=== PATIENT | female | born 1980 | race American Indian/Alaskan Native ===

== ENCOUNTER 2016-08-19 19:11 | Emergency (ER) | payer SELFPAY ==
[2016-08-19 19:20] VITALS: BP 129/72
[2016-08-19 19:57] LABS: CHLORIDE,CL 103 mmol/L (101-111); SODIUM,NA 136 mmol/L (135-145)
--- NOTE | 2016-08-19 20:19 | EDM.PDOC ---
ED HPI ENT - General Chief Complaint: ENT Problem Stated Complaint: NOSEBLEED Time Seen by Provider: 08/19/16 19:30 Source of Information: Reports: Patient History Limitations: Reports: No limitations - History of Present Illness INITIAL COMMENTS - FREE TEXT/NARRATIVE: c/o 3 nose bleeds today. All stopped with pressure, no bleeding history, no recent infections. No current bleeding - Related Data Allergies/ADRs: Allergies Allergy/AdvReac Type Severity Reaction Status Date / Time cephalexin Allergy Rash Verified 08/19/16 19:20 Home Meds: Home Meds . [No Known Home Meds] 08/19/16 [History] Past Medical History - Past Health History Medical/Surgical History: Denies Medical/Surgical History Social & Family History - Tobacco Use Smoking Status *Q: Current Every Day Smoker Years of Tobacco use: 1 Packs/Tins Daily: 0.1 Used Tobacco, but Quit: No - Recreational Drug Use Recreational Drug Use: No ED ROS ENT - Review of Systems Review Of Systems: See Below Constitutional: Reports: no symptoms HEENT: Reports: Nosebleed Respiratory: Reports: no symptoms Cardiovascular: Reports: No symptoms Endocrine: Reports: no symptoms Musculoskeletal: Reports: no symptoms Skin: Reports: no symptoms Neurological: Reports: no symptoms ED EXAM, ENT - Physical Exam Exam: See Below Exam Limited By: No limitations General Appearance: alert, no apparent distress Eye Exam: bilateral eye: EOMI Ears: normal external exam, normal TMs Nose: injected turbinates (left, no active bleeding, mild swelling left). No: nasal discharge, nasal swelling, nasal tenderness, nasal ecchymosis, active bleeding, dried blood Mouth/Throat: Normal inspection, Normal gums, Normal oropharynx Head: atraumatic, normocephalic Respiratory/Chest: no respiratory distress, lungs clear Cardiovascular: normal peripheral pulses, regular rate, rhythm Psychiatric: normal affect Skin: Warm, Dry, Intact, Normal color Course - Vital Signs Last Recorded V/S: Last Vital Signs Temp 97.9 F 08/19/16 19:15 Pulse 74 08/19/16 19:15 Resp 18 08/19/16 19:15 BP 129/72 08/19/16 19:15 Pulse Ox 100 08/19/16 19:15 - Orders/Labs/Meds Labs: Laboratory Tests 08/19/16 08/19/16 Range/Units 19:32 19:32 WBC 10.5 H (5.0-10.0) 10^3/uL RBC 4.54 (4.2-5.4) 10^6/uL Hgb 11.6 L (12.0-16.0) g/dL Hct 35.9 L (37.0-47.0) % MCV 79.1 L (80-100) fL MCH 25.6 L (27.0-34.0) pg MCHC 32.3 L (33.0-35.0) g/dL Plt Count 223 (150-450) 10^3/uL Neut % (Auto) 67.2 (42.2-75.2) % Lymph % (Auto) 23.0 (20.5-50.1) % [place] % (Auto) 7.1 (2-8) % Eos % (Auto) 2.4 (1.0-3.0) % Baso % (Auto) 0.3 (0.0-1.0) % Sodium 136 (135-145) mmol/L Potassium 3.9 (3.6-5.0) mmol/L Chloride 103 (101-111) mmol/L Carbon Dioxide 25.0 (21.0-31.0) mmol/L Anion Gap 11.9 BUN 12 (7-18) mg/dL Creatinine 0.6 (0.6-1.3) mg/dL Est Cr Clr Drug Dosing 124.84 mL/min Estimated GFR (MDRD) > 60 BUN/Creatinine Ratio 20.00 Glucose 118 H (74-105) mg/dL Calcium 9.0 (8.4-10.2) mg/dl Total Bilirubin 0.2 (0.2-1.0) mg/dL AST 21 (10-42) IU/L ALT 19 (10-60) IU/L Alkaline Phosphatase 61 (42-121) IU/L Total Protein 7.5 (6.7-8.2) g/dl Albumin 3.6 (3.2-5.5) g/dl Globulin 3.9 Albumin/Globulin Ratio 0.92 Departure - Departure Time of Disposition: 20:15 Disposition: Home, Self-Care 01 Condition: good Clinical Impression: Epistaxis Instructions: Nosebleed, [id number] Forms: ED Department Discharge Additional Instructions: Humidification saline nasal spray twice daily if nose bleed, gentle blow then apply pressure to nasal bridge x 5 minutes recheck if bleeding does not stop
== END 2016-08-19 20:20 | disposition home or self-care (01) ==
LOC: DL.ED 19:11
DX: R04.0 Epistaxis (principal); F17.210 Nicotine dependence, cigarettes, uncomplicated
CPT/HCPCS: 36415; 80053; 85025; 99282; 99283

== ENCOUNTER 2018-02-24 19:22 | Emergency (ER) | payer MEDICAID ==
[2018-02-24 19:40] VITALS: BP 128/78
[2018-02-24 20:22] LABS: ANION GAP 13.5; CHLORIDE,CL 104 mmol/L (101-111); SODIUM,NA 136 mmol/L (135-145)
--- NOTE | 2018-02-24 20:52 | EDM.PDOC ---
ED HPI GENERAL MEDICAL PROBLEM - General Chief Complaint: Fever Stated Complaint: FEVER,NOT FEELING GOOD [id number] Time Seen by Provider: 02/24/18 19:40 Source of Information: Reports: Patient History Limitations: Reports: No Limitations - History of Present Illness INITIAL COMMENTS - FREE TEXT/NARRATIVE: ED with c/o fever and general body aches this am on awakening. No sorethroat, headache, nausea, abdominal pain vomiting or diarrhea. Generalized Pain Score (Numeric/FACES): 3 - Related Data Allergies Allergy/AdvReac Type Severity Reaction Status Date / Time cephalexin Allergy Rash Verified 02/24/18 19:37 Home Meds: Home Meds . 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 Constitutional: Reports: Chills HEENT: Reports: No Symptoms Respiratory: Reports: No Symptoms Cardiovascular: Reports: No Symptoms GI/Abdominal: Reports: No Symptoms : Reports: No Symptoms Musculoskeletal: Reports: Joint Pain, Muscle Pain Skin: Reports: No Symptoms Neurological: Reports: No Symptoms Psychiatric: Reports: No Symptoms ED EXAM, GENERAL - Physical Exam Exam: See Below Exam Limited By: No Limitations General Appearance: Alert, Mild Distress Eye Exam: Bilateral Eye: EOMI, PERRL Ears: Normal External Exam, Normal TMs Nose: Normal Inspection Throat/Mouth: Normal Inspection Head: Atraumatic, Normocephalic Neck: Normal Inspection, Full Range of Motion Respiratory/Chest: No Respiratory Distress, Lungs Clear, Normal Breath Sounds Cardiovascular: Normal Peripheral Pulses, Regular Rate, Rhythm GI/Abdominal: Normal Bowel Sounds, Soft, Non-Tender Back Exam: Normal Inspection, Full Range of Motion. No: CVA Tenderness (L), CVA Tenderness (R) Extremities: Normal Inspection, Normal Range of Motion. No: Joint Swelling, Limited Range of Motion, Increased Warmth, Redness Neurological: Alert, Oriented, Normal Cognition Psychiatric: Normal Affect, Normal Mood Skin Exam: Warm, Dry, Intact, Normal Color, No Rash. No: Increased Warmth, Wound/Incision Course - Vital Signs Last Recorded V/S: Last Vital Signs Temp 99.0 F 02/24/18 19:38 Pulse 93 02/24/18 19:38 Resp 16 02/24/18 19:38 BP 128/78 02/24/18 19:38 Pulse Ox 100 02/24/18 19:38 - Orders/Labs/Meds Labs: Laboratory Tests 02/24/18 02/24/18 02/24/18 Range/Units 19:56 19:56 19:56 WBC 10.1 H (5.0-10.0) 10^3/uL RBC 5.15 (4.2-5.4) 10^6/uL Hgb 13.8 D (12.0-16.0) g/dL Hct 42.0 (37.0-47.0) % MCV 81.6 (80-100) fL MCH 26.8 L (27.0-34.0) pg MCHC 32.9 L (33.0-35.0) g/dL Plt Count 239 (150-450) 10^3/uL Neut % (Auto) 87.0 H (42.2-75.2) % Lymph % (Auto) 8.0 L (20.5-50.1) % [place] % (Auto) 3.3 (2-8) % Eos % (Auto) 1.6 (1.0-3.0) % Baso % (Auto) 0.1 (0.0-1.0) % Sodium 136 (135-145) mmol/L Potassium 3.5 L (3.6-5.0) mmol/L Chloride 104 (101-111) mmol/L Carbon Dioxide 22.0 (21.0-31.0) mmol/L Anion Gap 13.5 BUN 10 (7-18) mg/dL Creatinine 0.7 (0.6-1.3) mg/dL Est Cr Clr Drug Dosing 102.01 mL/min Estimated GFR (MDRD) > 60 BUN/Creatinine Ratio 14.28 Glucose 106 H (74-105) mg/dL Calcium 8.4 (8.4-10.2) mg/dl Total Bilirubin 0.5 (0.2-1.0) mg/dL AST 34 (10-42) IU/L ALT 32 (10-60) IU/L Alkaline Phosphatase 88 (42-121) IU/L C-Reactive Protein 4.2 H (0.0-1.3) mg/dL Total Protein 7.7 (6.7-8.2) g/dl Albumin 3.7 (3.2-5.5) g/dl Globulin 4.0 Albumin/Globulin Ratio 0.93 Urine Color (YELLOW) Urine Appearance (CLEAR) Urine pH (5.0-9.0) Ur Specific [place] (1.005-1.030) Urine Protein (NEGATIVE) Urine Glucose (UA) (NEGATIVE) Urine Ketones (NEGATIVE) Urine Occult Blood (NEGATIVE) Urine Nitrite (NEGATIVE) Urine Bilirubin (NEGATIVE) Urine Urobilinogen (0.2-1.0) mg/dL Ur Leukocyte Esterase (NEGATIVE) Urine RBC /HPF Urine WBC (0-5/HPF) /HPF Ur Epithelial Cells /HPF Urine Bacteria (0-FEW/HPF) /HPF Urine Mucus /LPF 02/24/18 Range/Units 20:40 WBC (5.0-10.0) 10^3/uL RBC (4.2-5.4) 10^6/uL Hgb (12.0-16.0) g/dL Hct (37.0-47.0) % MCV (80-100) fL MCH (27.0-34.0) pg MCHC (33.0-35.0) g/dL Plt Count (150-450) 10^3/uL Neut % (Auto) (42.2-75.2) % Lymph % (Auto) (20.5-50.1) % [place] % (Auto) (2-8) % Eos % (Auto) (1.0-3.0) % Baso % (Auto) (0.0-1.0) % Sodium (135-145) mmol/L Potassium (3.6-5.0) mmol/L Chloride (101-111) mmol/L Carbon Dioxide (21.0-31.0) mmol/L Anion Gap BUN (7-18) mg/dL Creatinine (0.6-1.3) mg/dL Est Cr Clr Drug Dosing mL/min Estimated GFR (MDRD) BUN/Creatinine Ratio Glucose (74-105) mg/dL Calcium (8.4-10.2) mg/dl Total Bilirubin (0.2-1.0) mg/dL AST (10-42) IU/L ALT (10-60) IU/L Alkaline Phosphatase (42-121) IU/L C-Reactive Protein (0.0-1.3) mg/dL Total Protein (6.7-8.2) g/dl Albumin (3.2-5.5) g/dl Globulin Albumin/Globulin Ratio Urine Color Yellow (YELLOW) Urine Appearance Slightly cloudy (CLEAR) Urine pH 7.5 (5.0-9.0) Ur Specific [place] 1.020 (1.005-1.030) Urine Protein Negative (NEGATIVE) Urine Glucose (UA) Negative (NEGATIVE) Urine Ketones Negative (NEGATIVE) Urine Occult Blood Negative (NEGATIVE) Urine Nitrite Negative (NEGATIVE) Urine Bilirubin Negative (NEGATIVE) Urine Urobilinogen 0.2 (0.2-1.0) mg/dL Ur Leukocyte Esterase Negative (NEGATIVE) Urine RBC 0-5 /HPF Urine WBC 0-5 (0-5/HPF) /HPF Ur Epithelial Cells Few /HPF Urine Bacteria Rare (0-FEW/HPF) /HPF Urine Mucus Moderate H /LPF Departure - Departure Time of Disposition: 21:51 Disposition: Home, Self-Care 01 Condition: Good Clinical Impression: Body aches - Discharge Information *PRESCRIPTION DRUG MONITORING PROGRAM REVIEWED*: Not Applicable Instructions: Musculoskeletal Pain Forms: ED Department Discharge Additional Instructions: alternate tylenol and ibuprofen increase fluids follow up increased fever or worsening of symptoms
== END 2018-02-24 21:55 | disposition home or self-care (01) ==
LOC: DL.ED 19:22
DX: R52 Pain, unspecified (principal); F17.210 Nicotine dependence, cigarettes, uncomplicated; Z88.1 Allergy status to other antibiotic agents
CPT/HCPCS: 36415; 80053; 81001; 85025; 86140; 87804; 99283

== ENCOUNTER 2018-08-09 21:45 | Emergency (ER) | payer MEDICAID ==
[2018-08-09] MEDS ORDERED: Ondansetron 4 MG Tab.DIS PO ONE (21:46)
[2018-08-09 21:54] VITALS: BP 122/90
[2018-08-09] MEDS ORDERED: Sodium Chloride 0.9% 1,000 ML IV ONE (22:06)
[2018-08-09] MEDS ORDERED: Ondansetron 4 MG/2 ML SDV IV ONE (22:06)
--- NOTE | 2018-08-09 22:30 | EDM.PDOC ---
ED HPI GENERAL MEDICAL PROBLEM - General Chief Complaint: Fever Stated Complaint: FLU Time Seen by Provider: 08/09/18 22:00 Source of Information: Reports: Patient History Limitations: Reports: No Limitations - History of Present Illness INITIAL COMMENTS - FREE TEXT/NARRATIVE: C/o cough vomiting diarrhea and chills starting this afternoon. Reports daughter and granddaughter diagnosed recently with influenza. 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 ED EXAM, GENERAL - Physical Exam Exam: See Below Exam Limited By: No Limitations General Appearance: Alert, Mild Distress Eye Exam: Bilateral Eye: EOMI, PERRL Ears: Normal External Exam, Normal Canal, Hearing Grossly Normal Nose: Normal Inspection. No: Nasal Drainage Throat/Mouth: Normal Inspection, Normal Voice, No Airway Compromise Head: Atraumatic, Normocephalic Neck: Normal Inspection, Full Range of Motion Respiratory/Chest: No Respiratory Distress, Lungs Clear, Other (loose bronchial cough rare) Cardiovascular: Normal Peripheral Pulses, Regular Rate, Rhythm GI/Abdominal: Normal Bowel Sounds, Soft, Non-Tender Back Exam: Full Range of Motion Neurological: Alert, Oriented, Normal Cognition Psychiatric: Flat Affect Skin Exam: Warm, Dry, Intact, Normal Color Course - Vital Signs Last Recorded V/S: Last Vital Signs Temp 97.7 F 08/09/18 21:50 Pulse 106 H 08/09/18 21:50 Resp 19 08/09/18 21:50 BP 122/90 08/09/18 21:50 Pulse Ox 99 08/09/18 21:50 - Orders/Labs/Meds Orders: Active Orders 24 hr Category Date Time Status CULTURE STREP A CONFIRMATION [RM] Stat Lab 08/09/18 22:05 Results STREP SCRN A RAPID W CULT CONF [] Stat Lab 08/09/18 22:05 Results Labs: Laboratory Tests 08/09/18 08/09/18 Range/Units 22:09 22:09 WBC 19.2 H (5.0-10.0) 10^3/uL RBC 5.18 (4.2-5.4) 10^6/uL Hgb 13.9 (12.0-16.0) g/dL Hct 41.7 (37.0-47.0) % MCV 80.5 (80-100) fL MCH 26.8 L (27.0-34.0) pg MCHC 33.3 (33.0-35.0) g/dL Plt Count 249 (150-450) 10^3/uL Neut % (Auto) 92.3 H (42.2-75.2) % Lymph % (Auto) 3.6 L (20.5-50.1) % [place] % (Auto) 2.8 (2-8) % Eos % (Auto) 1.2 (1.0-3.0) % Baso % (Auto) 0.1 (0.0-1.0) % Sodium 137 (135-145) mmol/L Potassium 3.7 (3.6-5.0) mmol/L Chloride 103 (101-111) mmol/L Carbon Dioxide 20.0 L (21.0-31.0) mmol/L Anion Gap 17.7 BUN 15 (7-18) mg/dL Creatinine 0.7 (0.6-1.3) mg/dL Est Cr Clr Drug Dosing 101.01 mL/min Estimated GFR (MDRD) > 60 BUN/Creatinine Ratio 21.42 Glucose 128 H (74-105) mg/dL Calcium 8.5 (8.4-10.2) mg/dl Total Bilirubin 0.7 (0.2-1.0) mg/dL AST 24 (10-42) IU/L ALT 24 (10-60) IU/L Alkaline Phosphatase 75 (42-121) IU/L Total Protein 8.1 (6.7-8.2) g/dl Albumin 3.9 (3.2-5.5) g/dl Globulin 4.2 Albumin/Globulin Ratio 0.93 Meds: Medications Discontinued Medications Generic Name Dose Route Start Last Admin Trade Name Esdrasq PRN Reason Stop Dose Admin Sodium Chloride 1,000 mls @ 999 mls/hr 08/09/18 22:06 08/09/18 22:14 Normal Saline IV 08/09/18 23:06 999 mls/hr .BOLUS ONE Administration Ondansetron HCl 4 mg 08/09/18 22:06 08/09/18 22:14 Zofran IV 08/09/18 22:07 4 mg ONETIME ONE Administration Ondansetron HCl Confirm 08/09/18 23:47 08/10/18 00:30 Zofran Odt Administered 08/09/18 23:48 Not Given Dose 8 mg .[facility] .[facility] [place] [facility] Interpretation Free Text/Narrative:: Name: GAIL CHAPA Age: 38Years F Date: 08/09/2018 SSN: -- : [id number] Study: XR CHEST 1 VIEW Requesting Physician: AYLEEN ZIEGLER Images: 1 Addl Studies: Provided Clinical History: Contrast: Contrast Medium: Contrast Amount: Contrast Method: CONFIDENTIALITY STATEMENT This report is intended only for use by the referring physician, and only in accordance with law. If you received this in error, call [phone]. Page 1 of 1 EXAM: XR Chest, 1 View EXAM DATE/TIME: 08/09/2018 10:42 PM CLINICAL HISTORY: 38 years old, female; Signs and symptoms; Cough and fever TECHNIQUE: XR of the chest, 1 view. COMPARISON: No relevant prior studies available. FINDINGS: Lungs: LEFT retrocardiac opacification, possible combination LEFT lower lobe segmental atelectasis versus infiltrate. Pleural space: No pleural effusion. No pneumothorax. Heart/Mediastinum: Cardiomegaly. Bones/joints: Unremarkable. IMPRESSION: LEFT lower lobe segmental atelectasis versus infiltrate. Thank you for allowing us to participate in the care of your patient. Dictated and Authenticated by: Carli Cedillo MD 08/09/2018 11:17 PM Central Time ([place] & [place] Departure - Departure Time of Disposition: 23:43 Disposition: Home, Self-Care 01 Condition: Good Clinical Impression: Gastroenteritis URI (upper respiratory infection) Qualifiers: URI type: unspecified viral URI Qualified Code(s): J06.9 - Acute upper respiratory infection, unspecified - Discharge Information *PRESCRIPTION DRUG MONITORING PROGRAM REVIEWED*: No *COPY OF PRESCRIPTION DRUG MONITORING REPORT IN PATIENT CYNDI: No Referrals: PCP,None [Primary Care Provider] - Forms: ED Department Discharge Additional Instructions: rest small sips liquid more frequent, slowly advane with toleration zofran 4mg ODT one every 6 hours as needed for nausea and vomiting - My Orders Last 24 Hours: My Active Orders 08/09/18 22:05 CULTURE STREP A CONFIRMATION [RM] Stat STREP SCRN A RAPID W CULT CONF [RM] Stat - Assessment/Plan Last 24 Hours: My Active Orders 08/09/18 22:05 CULTURE STREP A CONFIRMATION [RM] Stat STREP SCRN A RAPID W CULT CONF [] Stat
[2018-08-09 22:39] LABS: ANION GAP 17.7; CHLORIDE,CL 103 mmol/L (101-111); SODIUM,NA 137 mmol/L (135-145)
[2018-08-09] MEDS ORDERED: Ondansetron 4 MG Tab.DIS ONE (23:47)
== END 2018-08-09 23:57 | disposition home or self-care (01) ==
LOC: DL.ED 21:45
DX: K52.9 Noninfective gastroenteritis and colitis, unspecified (principal); J06.9 Acute upper respiratory infection, unspecified; Z90.49 Acquired absence of other specified parts of digestive tract; Z88.1 Allergy status to other antibiotic agents
CPT/HCPCS: 36415; 71045; 80053; 85025; 87081; 87430; 87804; 96361; 96374; 99284; J2405; J7030; A9270-GY

== ENCOUNTER 2019-05-27 12:37 | Emergency (ER) | payer MEDICAID ==
[2019-05-27] MEDS ORDERED: Albuterol/Ipratropium 3.0-0.5 MG/3 ML Neb Soln NEB ONE (12:44)
--- NOTE | 2019-05-27 12:53 | EDM.PDOC ---
ED HPI GENERAL MEDICAL PROBLEM - General Chief Complaint: Respiratory Problem Stated Complaint: SOB Time Seen by Provider: 05/27/19 12:53 Source of Information: Reports: Patient, Family, RN, RN Notes Reviewed History Limitations: Reports: No Limitations - History of Present Illness INITIAL COMMENTS - FREE TEXT/NARRATIVE: patient presents to ER with complaint of shortness of breath, cough, cold. Patient states she's had a cold for the past 7-10 days. Patient states she's had some shortness of breath for the past 2 days, increasing today. Patient admits to fever and chills, and nausea. Patient states the only pain she has is in the left popliteal area. Denies any history of blood clots. Onset: Gradual Onset Date: 05/25/19 - Related Data Allergies Allergy/AdvReac Type Severity Reaction Status Date / Time cephalexin Allergy Rash Verified 08/09/18 21:54 Home Meds: Home Meds . 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 ED EXAM, GENERAL - Physical Exam Exam: See Below Exam Limited By: No Limitations General Appearance: Alert, WD/WN, No Apparent Distress Eye Exam: Bilateral Eye: EOMI, Normal Inspection Ears: Normal External Exam, Hearing Grossly Normal Nose: Normal Inspection Throat/Mouth: Normal Inspection, Normal Voice, No Airway Compromise Head: Atraumatic, Normocephalic Neck: Normal Inspection, Supple, Non-Tender, Full Range of Motion Respiratory/Chest: No Respiratory Distress, No Accessory Muscle Use, Chest Non- Tender, Rhonchi, Wheezing Cardiovascular: Normal Peripheral Pulses, Regular Rate, Rhythm, No Edema, No Gallop, No JVD, No Murmur, No Rub Peripheral Pulses: 2+: Radial (L), Radial (R) GI/Abdominal: Normal Bowel Sounds, Soft, Non-Tender (Female) Exam: Deferred Rectal (Female) Exam: Deferred Back Exam: Normal Inspection, Full Range of Motion, NT Extremities: Normal Inspection, Normal Range of Motion, Non-Tender, Normal Capillary Refill, No Pedal Edema Neurological: Alert, Oriented, CN II-XII Intact, Normal Cognition, Normal Gait, Normal Reflexes, No Motor/Sensory Deficits Psychiatric: Normal Affect, Normal Mood Skin Exam: Warm, Dry, Intact, Normal Color, No Rash Lymphatic: No Adenopathy Course - Vital Signs Last Recorded V/S: Last Vital Signs Temp 97.9 F 05/27/19 12:37 Pulse 110 H 05/27/19 12:58 Resp 18 05/27/19 12:37 BP 124/68 05/27/19 12:37 Pulse Ox 98 05/27/19 12:37 - Orders/Labs/Meds Orders: Active Orders 24 hr Category Date Time Status EKG Documentation Completion [RC] STAT Care 05/27/19 12:54 Inactive Peripheral IV Care [RC] . DIRECTED Care 05/27/19 12:54 Active RT Aerosol Therapy [RC] ASDIRECTED Care 05/27/19 12:44 Active CULTURE BLOOD [BC] Stat Lab 05/27/19 12:55 Received CULTURE BLOOD [BC] Stat Lab 05/27/19 13:49 Received Blood Culture x2 Reflex Set [OM.PC] Stat Oth 05/27/19 12:54 Ordered Peripheral IV Insertion Adult [OM.PC] Stat Oth 05/27/19 12:54 Ordered Labs: Laboratory Tests 05/27/19 05/27/19 05/27/19 Range/Units 12:55 12:55 12:55 WBC 12.5 H (5.0-10.0) 10^3/uL RBC 5.31 (4.2-5.4) 10^6/uL Hgb 14.2 (12.0-16.0) g/dL Hct 42.2 (37.0-47.0) % MCV 79.5 L (80-100) fL MCH 26.7 L (27.0-34.0) pg MCHC 33.6 (33.0-35.0) g/dL Plt Count 308 (150-450) 10^3/uL Neut % (Auto) 69.5 (42.2-75.2) % Lymph % (Auto) 21.3 (20.5-50.1) % [place] % (Auto) 5.0 (2-8) % Eos % (Auto) 4.0 H (1.0-3.0) % Baso % (Auto) 0.2 (0.0-1.0) % PT 9.2 (9.0-12.0) SEC INR 0.9 (0.9-1.2) D-Dimer, Quantitative 101 (0-400) ng/mL Sodium 137 (135-145) mmol/L Potassium 3.6 (3.6-5.0) mmol/L Chloride 106 (101-111) mmol/L Carbon Dioxide 22.0 (21.0-31.0) mmol/L Anion Gap 12.6 BUN 11 (7-18) mg/dL Creatinine 0.7 (0.6-1.3) mg/dL Est Cr Clr Drug Dosing TNP Estimated GFR (MDRD) > 60 BUN/Creatinine Ratio 15.71 Glucose 107 H (74-105) mg/dL Lactic Acid (0.5-2.2) mmol/L Calcium 8.7 (8.4-10.2) mg/dl Total Bilirubin 0.6 (0.2-1.0) mg/dL AST 65 H (10-42) IU/L ALT 95 H (10-60) IU/L Alkaline Phosphatase 86 (42-121) IU/L Troponin I < 0.02 (0.00-0.02) ng/ml Total Protein 8.4 H (6.7-8.2) g/dl Albumin 3.9 (3.2-5.5) g/dl Globulin 4.5 Albumin/Globulin Ratio 0.87 05/27/ Range/Units 12:55 WBC (5.0-10.0) 10^3/uL RBC (4.2-5.4) 10^6/uL Hgb (12.0-16.0) g/dL Hct (37.0-47.0) % MCV (80-100) fL MCH (27.0-34.0) pg MCHC (33.0-35.0) g/dL Plt Count (150-450) 10^3/uL Neut % (Auto) (42.2-75.2) % Lymph % (Auto) (20.5-50.1) % [place] % (Auto) (2-8) % Eos % (Auto) (1.0-3.0) % Baso % (Auto) (0.0-1.0) % PT (9.0-12.0) SEC INR (0.9-1.2) D-Dimer, Quantitative (0-400) ng/mL Sodium (135-145) mmol/L Potassium (3.6-5.0) mmol/L Chloride (101-111) mmol/L Carbon Dioxide (21.0-31.0) mmol/L Anion Gap BUN (7-18) mg/dL Creatinine (0.6-1.3) mg/dL Est Cr Clr Drug Dosing Estimated GFR (MDRD) BUN/Creatinine Ratio Glucose (74-105) mg/dL Lactic Acid 1.3 (0.5-2.2) mmol/L Calcium (8.4-10.2) mg/dl Total Bilirubin (0.2-1.0) mg/dL AST (10-42) IU/L ALT (10-60) IU/L Alkaline Phosphatase (42-121) IU/L Troponin I (0.00-0.02) ng/ml Total Protein (6.7-8.2) g/dl Albumin (3.2-5.5) g/dl Globulin Albumin/Globulin Ratio Meds: Medications Discontinued Medications Generic Name Dose Route Start Last Admin Trade Name Freq PRN Reason Stop Dose Admin Albuterol/Ipratropium 3 ml 05/27/19 12:44 05/27/19 13:02 Duoneb 3.0-0.5 Mg/3 Ml NEB 05/27/19 12:45 3 ml ONETIME ONE Administration Sodium Chloride 10 ml 05/27/19 12:54 Saline Flush FLUSH ASDIRECTED PRN Keep Vein Open - Radiology Interpretation Free Text/Narrative:: Chest xray: no acute new cardiopulmonary abnormality since August 2018 See rad report Departure - Departure Time of Disposition: 14:54 Disposition: Home, Self-Care 01 Condition: Fair Clinical Impression: Bronchitis - Discharge Information *PRESCRIPTION DRUG MONITORING PROGRAM REVIEWED*: No *COPY OF PRESCRIPTION DRUG MONITORING REPORT IN PATIENT CYNDI: No Instructions: Acute Bronchitis, Adult, [id number], Upper Respiratory Infection, Adult, [id number], How to Use a Dry Powder Inhaler, [id number] Referrals: PCP,None [Primary Care Provider] - Forms: ED Department Discharge Additional Instructions: May use Tylenol and/or ibuprofen for fever/pain Drink plenty of water Rx: Albuterol inhaler, azithromycin Rest Follow-up with your primary care provider Return to the ER with any worsening of symptoms Sepsis Event Note - Focused Exam Vital Signs: Vital Signs Temp Pulse Resp BP Pulse Ox 05/27/19 12:58 110 H 05/27/19 12:37 97.9 F 86 18 124/68 98 Date Exam was Performed: 05/27/19 Time Exam was Performed: 19:12 - My Orders Last 24 Hours: My Active Orders 05/27/19 12:44 RT Aerosol Therapy [RC] ASDIRECTED 05/27/19 12:54 EKG Documentation Completion [RC] STAT Peripheral IV Care [RC] . DIRECTED Blood Culture x2 Reflex Set [OM.PC] Stat Peripheral IV Insertion Adult [OM.PC] Stat 05/27/19 12:55 CULTURE BLOOD [BC] Stat 05/27/19 13:49 CULTURE BLOOD [BC] Stat - Assessment/Plan Last 24 Hours: My Active Orders 05/27/19 12:44 RT Aerosol Therapy [RC] ASDIRECTED 05/27/19 12:54 EKG Documentation Completion [RC] STAT Peripheral IV Care [RC] . DIRECTED Blood Culture x2 Reflex Set [OM.PC] Stat Peripheral IV Insertion Adult [OM.PC] Stat 05/27/19 12:55 CULTURE BLOOD [BC] Stat 05/27/19 13:49 CULTURE BLOOD [BC] Stat
[2019-05-27] MEDS ORDERED: Sodium Chloride 0.9% 10 ML Syringe FLUSH PRN (12:54)
[2019-05-27 13:00] VITALS: PULSE 110
[2019-05-27 13:26] LABS: ANION GAP 12.6; CHLORIDE,CL 106 mmol/L (101-111); SODIUM,NA 137 mmol/L (135-145)
--- NOTE | 2019-05-27 14:04 | CR ---
EXAMINATION: Chest 1V Frontal SEX: Female AGE: 39 years CLINICAL HISTORY: 39-year-old female chest pain. INTERPRETATION: 1. No acute new cardiopulmonary abnormality since comparison film 09 August 2018. 2. Normal cardiac silhouette and bony thorax (AP projection). No vascular congestion, alveolar edema or pleural effusion. 3. No new lung mass or hilar lymphadenopathy. 4. No infiltrate, atelectasis or collapse. 5. No pneumothorax, pneumomediastinum or free subdiaphragmatic air. CONCLUSION: No acute new cardiopulmonary abnormality since August 2018.
[2019-05-27 15:24] VITALS: BP 124/68
== END 2019-05-27 15:24 | disposition home or self-care (01) ==
LOC: DL.ED 12:37
DX: J40 Bronchitis, not specified as acute or chronic (principal); Z88.1 Allergy status to other antibiotic agents
CPT/HCPCS: 36415; 71045; 80053; 83605; 84484; 85025; 85379; 85610; 87040; 87077; 87186; 87804; 94640; 99285-25; J7620-GY

== ENCOUNTER 2019-09-21 20:37 | Emergency (ER) | payer MEDICAID, OTHER ==
[2019-09-21 20:46] VITALS: BP 120/54; PULSE 103
--- NOTE | 2019-09-21 20:48 | EDM.PDOC ---
ED HPI GENERAL MEDICAL PROBLEM - General Chief Complaint: Respiratory Problem Stated Complaint: BAD COUGH/HARD TIME BREATHING Time Seen by Provider: 09/21/19 20:48 Source of Information: Reports: Patient, RN, RN Notes Reviewed History Limitations: Reports: No Limitations - History of Present Illness INITIAL COMMENTS - FREE TEXT/NARRATIVE: patient presents to ER with complaint of feeling sick for 3-4 days. Patient states it began with cough has developed some shortness of breath. Patient admits to some abdominal pain, nausea, fever and chills. Patient denies sore throat runny nose or vomiting. Patient denies anyhistory of a health problems, denies taking medications on a daily basis. Patient denies any chance of . 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 Patient states she traveled to [place] last week Friday for shopping. Patient states she went only to the places she needed to go, warm asking gloves and used hand printed circuit boards laminator. Patient states she does not work in healthcare, and has not knowingly been exposed to anyone with Covid-19 symptoms. Onset: Gradual - Related Data Allergies Allergy/AdvReac Type Severity Reaction Status Date / Time cephalexin Allergy Rash Verified 09/21/19 20:41 Home Meds: Home Meds . 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 ED EXAM, GENERAL - Physical Exam Exam: See Below Exam Limited By: No Limitations General Appearance: Alert, WD/WN, No Apparent Distress Eye Exam: Bilateral Eye: EOMI, Normal Inspection Ears: Normal External Exam, Hearing Grossly Normal Nose: Normal Inspection Throat/Mouth: Normal Inspection, Normal Voice, No Airway Compromise Head: Atraumatic, Normocephalic Neck: Normal Inspection, Supple, Non-Tender, Full Range of Motion Respiratory/Chest: No Respiratory Distress, Lungs Clear, Normal Breath Sounds, No Accessory Muscle Use, Chest Non-Tender Cardiovascular: Normal Peripheral Pulses, Regular Rate, Rhythm, No Edema, No Gallop, No JVD, No Murmur, No Rub Peripheral Pulses: 2+: Radial (L), Radial (R) GI/Abdominal: Normal Bowel Sounds, Soft, Non-Tender (Female) Exam: Deferred Rectal (Female) Exam: Deferred Back Exam: Normal Inspection, Full Range of Motion, NT Extremities: Normal Inspection, Normal Range of Motion, Non-Tender, Normal Capillary Refill, No Pedal Edema Neurological: Alert, Oriented, CN II-XII Intact, Normal Cognition, Normal Gait, Normal Reflexes, No Motor/Sensory Deficits Psychiatric: Normal Affect, Normal Mood Skin Exam: Warm, Dry, Intact, Normal Color, No Rash Lymphatic: No Adenopathy Course - Vital Signs Last Recorded V/S: Last Vital Signs Temp 98.3 F 09/21/19 20:45 Pulse 103 H 09/21/19 20:45 Resp 20 09/21/19 20:45 BP 120/54 L 09/21/19 20:45 Pulse Ox 97 09/21/19 20:45 - Orders/Labs/Meds Orders: Active Orders 24 hr Category Date Time Status Chest 2V [CR] Urgent Exams 09/21/19 20:51 Ordered Isolation [COMM] Routine Oth 09/21/19 21:05 Active Labs: Laboratory Tests 09/21/19 09/21/19 09/21/19 Range/Units 21:00 21:00 21:00 WBC 12.1 H (5.0-10.0) 10^3/uL RBC 4.98 (4.2-5.4) 10^6/uL Hgb 13.3 (12.0-16.0) g/dL Hct 40.2 (37.0-47.0) % MCV 80.7 (80-100) fL MCH 26.7 L (27.0-34.0) pg MCHC 33.1 (33.0-35.0) g/dL Plt Count 252 (150-450) 10^3/uL Neut % (Auto) 63.6 (42.2-75.2) % Lymph % (Auto) 25.3 (20.5-50.1) % [place] % (Auto) 6.4 (2-8) % Eos % (Auto) 4.5 H (1.0-3.0) % Baso % (Auto) 0.2 (0.0-1.0) % D-Dimer, Quantitative (0-400) ng/mL Sodium 139 (136-145) mmol/L Potassium 3.6 (3.5-5.1) mmol/L Chloride 104 (98-107) mmol/L Carbon Dioxide 25 (21-32) mmol/L Anion Gap 13.6 H (7-13) mEq/L BUN 10 (7-18) mg/dL Creatinine 0.70 (0.55-1.02) mg/dL Est Cr Clr Drug Dosing 100.01 mL/min Estimated GFR (MDRD) > 60 BUN/Creatinine Ratio 14.3 (No establ ref range) Glucose 149 H (74-99) mg/dL Calcium 8.1 L (8.5-10.1) mg/dL Total Bilirubin 0.2 (0.2-1.0) mg/dL AST 130 H (15-37) U/L ALT 193 H (14-59) U/L Alkaline Phosphatase 130 H (46-116) U/L Lactate Dehydrogenase 217 (81-234) U/L Creatine Kinase (16-191) U/L C-Reactive Protein 2.7 H (0.0-0.9) mg/dL Total Protein 7.1 (6.4-8.2) g/dL Albumin 3.1 L (3.4-5.0) g/dL Globulin 4.0 Albumin/Globulin Ratio 0.78 09/21/19 09/21/19 Range/Units 21:00 21:00 WBC (5.0-10.0) 10^3/uL RBC (4.2-5.4) 10^6/uL Hgb (12.0-16.0) g/dL Hct (37.0-47.0) % MCV (80-100) fL MCH (27.0-34.0) pg MCHC (33.0-35.0) g/dL Plt Count (150-450) 10^3/uL Neut % (Auto) (42.2-75.2) % Lymph % (Auto) (20.5-50.1) % [place] % (Auto) (2-8) % Eos % (Auto) (1.0-3.0) % Baso % (Auto) (0.0-1.0) % D-Dimer, Quantitative < 100 (0-400) ng/mL Sodium (136-145) mmol/L Potassium (3.5-5.1) mmol/L Chloride (98-107) mmol/L Carbon Dioxide (21-32) mmol/L Anion Gap (7-13) mEq/L BUN (7-18) mg/dL Creatinine (0.55-1.02) mg/dL Est Cr Clr Drug Dosing mL/min Estimated GFR (MDRD) BUN/Creatinine Ratio (No establ ref range) Glucose (74-99) mg/dL Calcium (8.5-10.1) mg/dL Total Bilirubin (0.2-1.0) mg/dL AST (15-37) U/L ALT (14-59) U/L Alkaline Phosphatase (46-116) U/L Lactate Dehydrogenase (81-234) U/L Creatine Kinase 70 (16-191) U/L C-Reactive Protein (0.0-0.9) mg/dL Total Protein (6.4-8.2) g/dL Albumin (3.4-5.0) g/dL Globulin Albumin/Globulin Ratio Influenza A: Negative Influenza B: Negative - Radiology Interpretation Free Text/Narrative:: Chest xray: FINDINGS: Lungs: No acute infiltrate. There is either a small pulmonary nodule that may or may not be calcified in the upper right lung, versus a pulmonary vessel identified end-on. This finding measures 4.0 mm. Pleural space: Unremarkable. No pleural effusion. No pneumothorax. Heart/Mediastinum: Unremarkable. No cardiomegaly. Bones/joints: Unremarkable. IMPRESSION: 1. No acute disease. 2. Small, 4.0 mm upper right lung pulmonary nodule that may or may not be calcified, versus a pulmonary vessel identified end-on. Correlation with prior examinations, if they become available, would be helpful for stability assessment. If no prior exams become available, consider follow-up nonemergent low-dose chest CT. Thank you for allowing us to participate in the care of your patient. Dictated and Authenticated by: Nima Lizama MD 09/21/2019 9:24 PM Central Time ([place] & [place]) See rad report Departure - Departure Time of Disposition: 22:39 Disposition: Home, Self-Care 01 Condition: Fair Clinical Impression: URI (upper respiratory infection) Qualifiers: URI type: unspecified viral URI Qualified Code(s): J06.9 - Acute upper respiratory infection, unspecified - Discharge Information *PRESCRIPTION DRUG MONITORING PROGRAM REVIEWED*: No *COPY OF PRESCRIPTION DRUG MONITORING REPORT IN PATIENT CYNDI: No Instructions: Viral Respiratory Infection, [id number], Cough, Adult, Easy-to- Read, Shortness of Breath, Adult, [id number] Forms: ED Department Discharge Additional Instructions: RX: Cheratussin for cough Stay at home with no contact with anyone until results of Covid-19 is back. Anyone else in the home needs to stay in the home as well with no contact Drink plenty of fluids Return to the ER if symptoms worsen You will be called by [facility] or [facility] with the results of your test Sepsis Event Note - Evaluation Sepsis Screening Result: No Definite Risk - Focused Exam Vital Signs: Vital Signs Temp Pulse Resp BP Pulse Ox 09/21/19 20:45 98.3 F 103 H 20 120/54 L 97 Date Exam was Performed: 09/21/19 Time Exam was Performed: 22:37 - My Orders Last 24 Hours: My Active Orders 09/21/19 20:51 Chest 2V [CR] Urgent 09/21/19 21:05 Isolation [COMM] Routine - Assessment/Plan Last 24 Hours: My Active Orders 09/21/19 20:51 Chest 2V [CR] Urgent 09/21/19 21:05 Isolation [COMM] Routine
[2019-09-21 21:23] LABS: ANION GAP 13.6 mEq/L (7-13); CHLORIDE,CL 104 mmol/L (98-107); SODIUM,NA 139 mmol/L (136-145)
[2019-09-21] MEDS: Codeine/guaiFENesin 10-100 MG/5 ML Syrup 5 ML Cup PO ONE (22:46)
== END 2019-09-21 22:55 | disposition home or self-care (01) ==
LOC: DL.ED 20:37
DX: J06.9 Acute upper respiratory infection, unspecified (principal); Z88.1 Allergy status to other antibiotic agents
CPT/HCPCS: 36415; 71046; 80053; 82550; 83615; 85025; 85379; 86140; 87804; 99284-25; A9270-GY; U0002

== ENCOUNTER 2020-04-21 17:08 | Emergency (ER) | payer MEDICAID ==
[2020-04-21] MEDS ORDERED: Benzonatate 100 MG Cap PO ONE (17:09)
[2020-04-21 19:16] VITALS: BP 128/76; PULSE 103
--- NOTE | 2020-04-21 19:40 | CR ---
PROCEDURE INFORMATION: Exam: XR Chest, 2 Views Exam date and time: 04/21/2020 7:24 PM Age: 40 years old Clinical indication: Cough TECHNIQUE: Imaging protocol: XR of the chest Views: 2 views. COMPARISON: CT Chest wo Cont 10/13/2019 2:02 PM FINDINGS: Lungs: Atelectasis left lung base. Otherwise unremarkable. No consolidation. Pleural space: Unremarkable. No pleural effusion. No pneumothorax. Heart/Mediastinum: Unremarkable. No cardiomegaly. Bones/joints: Unremarkable. IMPRESSION: No acute findings.
[2020-04-21 20:26] LABS: CHLORIDE,CL 102 mmol/L (98-107); SODIUM,NA 138 mmol/L (136-145)
--- NOTE | 2020-04-21 21:42 | EDM.PDOC ---
ED HPI GENERAL MEDICAL PROBLEM - General Chief Complaint: Respiratory Problem Stated Complaint: COUGH, SHORTNESS BREATH Time Seen by Provider: 04/21/20 21:15 Source of Information: Reports: Patient History Limitations: Reports: No Limitations - History of Present Illness INITIAL COMMENTS - FREE TEXT/NARRATIVE: cough sweats diarrhea x 3 days, hx asthma ,used up albuterol and no refill. has not tried over counter medications. Has not been tested for COVID. - Related Data Allergies Allergy/AdvReac Type Severity Reaction Status Date / Time cephalexin Allergy Rash Verified 04/21/20 18:59 Home Meds: Home Meds . 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: Endocrine/Metabolic History: Reports: Diabetes, Type II - Past Surgical History GI Surgical History: Reports: Cholecystectomy Female Surgical History: Reports: Section Dermatological Surgical History: Reports: None Social & Family History - Family History Family Medical History: No Pertinent Family History - Tobacco Use Tobacco Use Status *Q: Unknown Ever Used Tobacco Second Hand Smoke Exposure: No - Caffeine Use Caffeine Use: Reports: Soda, Tea - Recreational Drug Use Recreational Drug Use: Yes Drug Use in Last 12 Months: No Recreational Drug Type: Reports: Marijuana/Hashish Recreational Drug Use Frequency: Not Used In Over 6 Months ED ROS GENERAL - Review of Systems Review Of Systems: Comprehensive ROS is negative, except as noted in HPI. ED EXAM, GENERAL - Physical Exam Exam: See Below Exam Limited By: No Limitations General Appearance: Alert, Mild Distress Eye Exam: Bilateral Eye: EOMI, PERRL Ears: Normal External Exam, Normal TMs Nose: Normal Inspection, Normal Mucosa Throat/Mouth: Normal Inspection Head: Normocephalic Neck: Normal Inspection, Full Range of Motion Respiratory/Chest: No Respiratory Distress, Lungs Clear, Decreased Breath Sounds (slight) Cardiovascular: Normal Peripheral Pulses, Regular Rate, Rhythm GI/Abdominal: Normal Bowel Sounds, Soft Extremities: Normal Inspection, Normal Range of Motion Neurological: Alert, Oriented Psychiatric: Normal Affect Skin Exam: Warm, Dry, Intact Course - Vital Signs Last Recorded V/S: Last Vital Signs Temp 98.5 F 04/21/20 19:11 Pulse 103 H 04/21/20 19:11 Resp 18 04/21/20 19:11 BP 128/76 04/21/20 19:11 Pulse Ox 99 04/21/20 19:11 - Orders/Labs/Meds Orders: Active Orders 24 hr Category Date Time Status CORONAVIRUS COVID-19 PCR [facility] Urgent Lab 04/21/20 21:35 Received Labs: Laboratory Tests 04/21/20 04/21/20 04/21/20 Range/Units 19:50 19:50 19:50 WBC 4.7 L (5.0-10.0) 10^3/uL RBC 5.53 H (4.2-5.4) 10^6/uL Hgb 14.7 (12.0-16.0) g/dL Hct 43.1 (37.0-47.0) % MCV 77.9 L (80-100) fL MCH 26.6 L (27.0-34.0) pg MCHC 34.1 (33.0-35.0) g/dL Plt Count 180 (150-450) 10^3/uL Neut % (Auto) 48.8 (42.2-75.2) % Lymph % (Auto) 41.1 (20.5-50.1) % [place] % (Auto) 9.9 H (2-8) % Eos % (Auto) 0.2 L (1.0-3.0) % Baso % (Auto) 0.0 (0.0-1.0) % Sodium 138 (136-145) mmol/L Potassium 3.0 L (3.5-5.1) mmol/L Chloride 102 (98-107) mmol/L Carbon Dioxide 26 (21-32) mmol/L Anion Gap 13.0 (7-13) mEq/L BUN 8 (7-18) mg/dL Creatinine 0.85 (0.55-1.02) mg/dL Est Cr Clr Drug Dosing 81.54 mL/min Estimated GFR (MDRD) > 60 BUN/Creatinine Ratio 9.4 (No establ ref range) Glucose 108 H (74-99) mg/dL Lactic Acid 1.2 (0.4-2.0) mmol/L Calcium 8.2 L (8.5-10.1) mg/dL Total Bilirubin 0.5 (0.2-1.0) mg/dL AST 339 H (15-37) U/L ALT 336 H (14-59) U/L Alkaline Phosphatase 148 H (46-116) U/L Total Protein 8.1 (6.4-8.2) g/dL Albumin 3.2 L (3.4-5.0) g/dL Globulin 4.9 Albumin/Globulin Ratio 0.65 Meds: Medications Discontinued Medications Generic Name Dose Route Start Last Admin Trade Name Freq PRN Reason Stop Dose Admin Albuterol Confirm 04/21/20 21:46 04/21/20 21:50 Proventil Hfa Administered 04/21/20 21:47 Not Given Dose 6.7 gm INH .STK-MED ONE Benzonatate Confirm 04/21/20 21:46 04/21/20 21:50 Tessalon Perles Administered 04/21/20 21:47 Not Given Dose 400 mg .ROUTE .STK-MED ONE Departure - Departure Time of Disposition: 21:39 Disposition: Home, Self-Care 01 Condition: Good Clinical Impression: Cough URI (upper respiratory infection) Qualifiers: URI type: unspecified viral URI Qualified Code(s): J06.9 - Acute upper respiratory infection, unspecified - Discharge Information *PRESCRIPTION DRUG MONITORING PROGRAM REVIEWED*: No *COPY OF PRESCRIPTION DRUG MONITORING REPORT IN PATIENT CYNDI: No Instructions: Asthma, Adult, Viral Respiratory Infection Forms: ED Department Discharge Additional Instructions: increase fluids tylenol 650mg every 6 hurs as needed for discomfort/ fever albuterol inhaler 2 puffs every 4 hours as needed tessalon perles 200mg every 8 hours as needed for cough over counter cough and cold medication per label instructions isolate avoid exposure to others OCVID results pending from State Sepsis Event Note (ED) - Evaluation Sepsis Screening Result: No Definite Risk - Focused Exam Vital Signs: Vital Signs Temp Pulse Pulse Resp BP Pulse Ox 04/21/20 19:11 98.5 F 103 H 18 128/76 99 04/21/20 17:17 107 H 22 H 96 - My Orders Last 24 Hours: My Active Orders 04/21/20 21:35 CORONAVIRUS COVID-19 PCR [facility] Urgent - Assessment/Plan Last 24 Hours: My Active Orders 04/21/20 21:35 CORONAVIRUS COVID-19 PCR PHL Urgent
[2020-04-21] MEDS ORDERED: Albuterol 6.7 GM Inhaler INH ONE (21:46)
[2020-04-21] MEDS ORDERED: Benzonatate 100 MG Cap ONE (21:46)
== END 2020-04-21 21:52 | disposition home or self-care (01) ==
LOC: DL.ED 17:08
DX: U07.1 COVID-19 (principal); J06.9 Acute upper respiratory infection, unspecified; J45.909 Unspecified asthma, uncomplicated; E11.9 Type 2 diabetes mellitus without complications; Z88.1 Allergy status to other antibiotic agents
CPT/HCPCS: 36415; 71046; 80053; 83605; 85025; 99283; 99285-25; A9270-GY; U0002

== ENCOUNTER 2021-08-30 21:45 | Emergency (ER) | payer MEDICAID ==
[2021-08-30] MEDS ORDERED: Cyclobenzaprine 10 MG Tab PO ONE (21:46)
[2021-08-30] MEDS ORDERED: Acetaminophen/HYDROcodone 325-5 MG Tab PO ONE (21:46)
[2021-08-30 22:24] LABS: AMPHETAMINES,URINE NEGATIVE (NEGATIVE); BARBITURATES,URINE NEGATIVE (NEGATIVE); BENZODIAZEPINE,URINE NEGATIVE (NEGATIVE); MDMA (ECSTASY), URINE NEGATIVE (NEGATIVE); METHADONE,URINE NEGATIVE (NEGATIVE); METHAMPHETAMINES,URINE NEGATIVE (NEGATIVE); OPIATES,URINE NEGATIVE (NEGATIVE); OXYCODONE,URINE POSITIVE (NEGATIVE); PHENCYCLIDINE,URINE NEGATIVE (NEGATIVE); TCA,URINE NEGATIVE (NEGATIVE)
[2021-08-30 22:37] LABS: ACETAMINOPHEN 0 ug/mL (10-30 (Therapeutic)); ANION GAP 16.6 mEq/L (7-13); CHLORIDE,CL 104 mmol/L (98-107); SODIUM,NA 138 mmol/L (136-145)
[2021-08-30] MEDS ORDERED: methylPREDNISolone Sodium Succinate 125 MG/2 ML SDV IM ONE (23:01)
[2021-08-30] MEDS ORDERED: Acetaminophen/HYDROcodone 325-5 MG Tab ONE (23:08)
[2021-08-30] MEDS ORDERED: Cyclobenzaprine 10 MG Tab ONE (23:09)
[2021-08-30 23:41] VITALS: BP 114/80; PULSE 99
== END 2021-08-30 23:36 | disposition home or self-care (01) ==
LOC: DL.ED 21:45
DX: M54.50 Low back pain, unspecified (principal); E11.9 Type 2 diabetes mellitus without complications; Z88.1 Allergy status to other antibiotic agents; Z88.5 Allergy status to narcotic agent
CPT/HCPCS: 36415; 80053; 80143; 80305-QW; 81003; 81025; 85025; 96372; 99283; A9270-GY; J2930

== ENCOUNTER 2023-03-19 22:09 | Emergency (ER) | payer SELFPAY ==
[2023-03-19 22:21] VITALS: BP 117/73; PULSE 82
== END 2023-03-19 22:47 | disposition home or self-care (01) ==
LOC: DL.ED 22:09
DX: R09.89 Other specified symptoms and signs involving the circulatory and respiratory systems (principal); E11.9 Type 2 diabetes mellitus without complications; F17.210 Nicotine dependence, cigarettes, uncomplicated; Z88.5 Allergy status to narcotic agent; Z88.1 Allergy status to other antibiotic agents; Z90.49 Acquired absence of other specified parts of digestive tract
CPT/HCPCS: 99283

== ENCOUNTER 2023-05-09 17:01 | Emergency (ER) | payer SELFPAY ==
[2023-05-09 17:11] VITALS: BP 128/71; PULSE 73
[2023-05-09] MEDS ORDERED: Albuterol/Ipratropium 3.0-0.5 MG/3 ML Neb Soln NEB ONE (17:12)
[2023-05-09 17:24] LABS: BASOPHILS PERCENT AUTO 0.2 % (0.0-1.0); EOSINOPHILS PERCENT AUTO 6.3 % (1.0-3.0); HEMOGLOBIN 11.5 g/dL (12.0-16.0); MEAN CORPUSCULAR HEMOGLOBIN 23.7 pg (27.0-34.0); MEAN CORPUSCULAR HGB CONC 31.9 g/dL (33.0-35.0); MEAN CORPUSCULAR VOLUME 74.2 fL (80-100); MONOCYTES PERCENT AUTO 6.8 % (2-8); NEUTROPHILS PERCENT AUTO 57.7 % (42.2-75.2); PLATELET COUNT,PLT 216 10^3/uL (150-450); RED BLOOD CELL COUNT 4.85 10^6/uL (4.2-5.4); WHITE BLOOD CELL COUNT,WBC 8.5 10^3/uL (5.0-10.0)
[2023-05-09 17:51] LABS: ALBUMIN 2.9 g/dL (3.4-5.0); ANION GAP 11.5 mEq/L (7-13); BILIRUBIN TOTAL 0.4 mg/dL (0.2-1.0); BUN/CREATININE RATIO 11.7 (No establ ref range); C-REACTIVE PROTEIN 2.63 ng/dL (<=0.50); CALCIUM 7.9 mg/dL (8.5-10.1); CREATININE 0.77 mg/dL (0.55-1.02); EST CRCL DRUG DOSING (CG) 90.67 mL/min; POTASSIUM,K 3.5 mmol/L (3.5-5.1); PROTEIN TOTAL,TP 7.6 g/dL (6.4-8.2)
[2023-05-09 17:52] LABS: A/G RATIO 0.62
[2023-05-09] MEDS ORDERED: predniSONE 20 MG Tab PO ONE (17:57)
[2023-05-09] MEDS ORDERED: Azithromycin 250 MG Tab PO ONE (17:57)
[2023-05-09] MEDS ORDERED: Albuterol 6.7 GM Inhaler INH ONE (17:58)
[2023-05-09 18:40] LABS: CORONAVIRUS COVID-19 NAA NEGATIVE (NEGATIVE); INFLUENZA A NAA NEGATIVE (NEGATIVE); INFLUENZA B NAA NEGATIVE (NEGATIVE); RESPIRATORY SYNCYTIAL VIR NAA NEGATIVE (NEGATIVE)
== END 2023-05-09 18:14 | disposition home or self-care (01) ==
LOC: DL.ED 17:01
DX: J06.9 Acute upper respiratory infection, unspecified (principal); J44.1 Chronic obstructive pulmonary disease with (acute) exacerbation; E11.9 Type 2 diabetes mellitus without complications; Z86.16 Personal history of COVID-19; Z88.1 Allergy status to other antibiotic agents; Z88.5 Allergy status to narcotic agent
CPT/HCPCS: 0241U; 36415; 71046; 80053; 85025; 86140; 94640; 99284; 99285; A9270; J7512; J7620-GY

== ENCOUNTER 2024-02-02 00:20 | Emergency (ER) | payer SELFPAY ==
[2024-02-02 00:27] VITALS: BP 136/65; PULSE 87
[2024-02-02] MEDS ORDERED: Sodium Chloride 0.9% 10 ML Syringe FLUSH PRN (00:46)
[2024-02-02 01:07] LABS: BASOPHILS PERCENT AUTO 0.5 % (0.0-1.0); EOSINOPHILS PERCENT AUTO 5.1 % (1.0-3.0); HEMATOCRIT 32.6 % (37.0-47.0); HEMOGLOBIN 9.7 g/dL (12.0-16.0); LYMPHOCYTES PERCENT AUTO 36.4 % (20.5-50.1); MEAN CORPUSCULAR HEMOGLOBIN 19.6 pg (27.0-34.0); MEAN CORPUSCULAR HGB CONC 29.8 g/dL (33.0-35.0); MONOCYTES PERCENT AUTO 6.4 % (2-8); NEUTROPHILS PERCENT AUTO 51.6 % (42.2-75.2); PLATELET COUNT,PLT 249 10^3/uL (150-450); RED BLOOD CELL COUNT 4.94 10^6/uL (4.2-5.4); WHITE BLOOD CELL COUNT,WBC 8.4 10^3/uL (5.0-10.0)
[2024-02-02 01:28] LABS: ALBUMIN 3.1 g/dL (3.4-5.0); ANION GAP 9.4 mEq/L (7-13); BILIRUBIN TOTAL 0.5 mg/dL (0.2-1.0); BUN/CREATININE RATIO 12.5 (No establ ref range); CALCIUM 8.5 mg/dL (8.5-10.1); CREATININE 0.8 mg/dL (0.55-1.02); EST CRCL DRUG DOSING (CG) 84.01 mL/min; POTASSIUM,K 3.4 mmol/L (3.5-5.1); PROTEIN TOTAL,TP 8.1 g/dL (6.4-8.2)
[2024-02-02 01:29] LABS: HEMOGLOBIN A1C 10.6 % (<5.7)
[2024-02-02 01:33] LABS: A/G RATIO 0.62
== END 2024-02-02 02:16 | disposition home or self-care (01) ==
LOC: DL.ED 00:20
DX: N92.0 Excessive and frequent menstruation with regular cycle (principal); R52 Pain, unspecified; D50.0 Iron deficiency anemia secondary to blood loss (chronic); E11.65 Type 2 diabetes mellitus with hyperglycemia; E78.00 Pure hypercholesterolemia, unspecified; E66.9 Obesity, unspecified; F17.210 Nicotine dependence, cigarettes, uncomplicated; Z86.16 Personal history of COVID-19; Z79.4 Long term (current) use of insulin; Z90.49 Acquired absence of other specified parts of digestive tract; Z79.899 Other long term (current) drug therapy; Z79.84 Long term (current) use of oral hypoglycemic drugs; Z88.1 Allergy status to other antibiotic agents; Z88.5 Allergy status to narcotic agent; Z68.41 Body mass index [BMI] 40.0-44.9, adult
CPT/HCPCS: 36415; 80053; 82947; 83036; 85025; 99283; 99284; U0002